=== PATIENT | female | born 1965 | race Two or more races ===

== ENCOUNTER → 2016-12-05 | Outpatient (CLI) | payer MEDICARE, OTHER ==
--- NOTE | 2016-12-05 14:39 | CT ---
EXAMINATION TYPE: CT chest wo con DATE OF EXAM: 12/05/2016 2:30 PM COMPARISON: CT chest June 18, 2016. HISTORY: Pulmonary nodule CT DLP: 744 mGycm. Automated Exposure Control for Dose Reduction was Utilized. TECHNIQUE: CT scan of the thorax is performed without IV contrast. FINDINGS: LUNGS: Scarlike opacity medial right lower lobe remains present and felt stable measuring 10 x 8 mm o n axial image 36. Linear scarring in the lingula near the diaphragm is stable. No new parenchymal nod ule or mass is present bilaterally. No pleural effusion or pneumothorax is seen. Tracheobronchial stephany e is patent. MEDIASTINUM: Lack of IV contrast is noted to limit evaluation for mediastinal and especially hilar a denopathy. There are no definitive greater than 1 cm hilar or mediastinal lymph nodes. No cardiomeg nely or pericardial effusion is seen. Three-vessel coronary artery calcification is noted. Some promin ence of fat in the interarterial septum is redemonstrated, cannot exclude lipomatous hypertrophy. OTHER: Liver is diffusely low dense consistent with fatty infiltration. IMPRESSION: Stable lesion medial right lung base favor postinflammatory in etiology. CT follow-up adv ised to document two-year stability.
== END | disposition home or self-care (01) ==
LOC: RADCTMAIN 12:51
PROVIDERS: ATTEND Internal Medicine Sleep Medicine
DX: J98.4 Other disorders of lung (principal)
CPT/HCPCS: 71250

== ENCOUNTER → 2020-08-23 | Outpatient (CLI) | payer MEDICARE, OTHER ==
[2020-08-23 15:38] VITALS: BP 133/85; PULSE 74; RESP 16; TEMP 97.8; BMI 41.2
--- NOTE | 2020-08-23 16:42 | P.HPBAR ---
Bariatric H&P - History & Physicial H&P Date: 08/23/20 History & Physicial: Visit/CC: Initial Visit Patient initial contact: Initial weight: 104.78 kg Initial weight in pounds: 231.00 Height: 5 ft 2.75 in Initial BMI: 41.2 Last weight: Current weight: 104.78 kg Current weight in pounds: 231.00 Current BMI: 41.2 [place] body weight (based on NIH guidelines): 51.596 kg Excess body weight loss: 0.0% The patient is a 55 year-old F who presents for Bariatric Assessment. HPI: She comes in for the first time for surgery. She has arthritis. She is told to lose weight for her knees and back. She reports lifetime weight gain. Highest weight is 275 pounds. She has not tried weight options recently. She chewed ice. Her sister had a band and has family history of obesity. Denies moderate GERD. No stomach or esophageal cancer. She had a colonoscopy 5 years ago with polyps. No abdominal pain. She still has her gallbladder. No surgeries to abdomen. She had a heart attack and had a stent. She does not see a heart doctor. She is open to options. She reports being a pickey eater PLAN: 1. She may be looking into the sleeve 2. EGD 3. Labs 4. Journal 5. EKG reviewed Past Medical History Past Medical History: Asthma, GERD/Reflux, Hearing Disorder / Deafness, Hyperlipidemia, Musculoskeletal Disorder, Respiratory Disorder, Rheumatoid Arthritis ([place]) History of Any Multi-Drug Resistant Organisms: None Reported Past Anesthesia/Blood Transfusion Reactions: No Reported Reaction, Postoperative Nausea & Vomiting (PONV) Smoking Status: Current some day smoker - Past Family History Father Family Medical History: Diabetes Mellitus, Myocardial Infarction ([place]) Mother Family Medical History: COPD Surgical - Exam Vital Signs Temp Pulse Resp BP 97.8 F 74 16 133/85 08/23/20 15:35 08/23/20 15:35 08/23/20 15:35 08/23/20 15:35 Bariatric Checklist Checklist: Plan: Checklist: EGD: 1. Hiatal hernia: 2. H. Pylori: HgbA1c: Vitamin D: Smoking: Current every day smoker Primary care physician referral: Dr. Stanford Psychiatry clearance: Cardiology clearance: Sleep study: Diet journal: VTE risk score: VTE risk level: Rehab needs at discharge:
== END | disposition home or self-care (01) ==
LOC: BARWHC3 15:04
PROVIDERS: ATTEND Surgery Plastic and Reconstructive Surgery
DX: R63.5 Abnormal weight gain (principal); M19.90 Unspecified osteoarthritis, unspecified site; K63.5 Polyp of colon; I51.89 Other ill-defined heart diseases; F17.200 Nicotine dependence, unspecified, uncomplicated; Z83.49 Family history of other endocrine, nutritional and metabolic diseases; Z95.818 Presence of other cardiac implants and grafts; Z68.41 Body mass index [BMI] 40.0-44.9, adult
CPT/HCPCS: 99201

== ENCOUNTER → 2021-05-09 | Outpatient (CLI) | payer MEDICARE, OTHER ==
[2021-05-09 13:41] VITALS: BP 142/84; PULSE 70; RESP 18; TEMP 98.7; BMI 45.1
--- NOTE | 2021-05-09 14:02 | P.HPBAR ---
Bariatric H&P - History & Physicial H&P Date: 05/09/21 History & Physicial: Visit/CC: initial visit Patient initial contact: Initial weight: 104.78 kg Initial weight in pounds: 231.00 Height: 5 ft 3.5 in Initial BMI: 40.2 Last weight: Current weight: 117.254 kg Current weight in pounds: 258.50 Current BMI: 45.1 [place] body weight (based on NIH guidelines): 53.297 kg Excess body weight loss: The patient is a 56 year-old F who presents for Bariatric Assessment. She is looking into weight loss surgery. She is thinking about the sleeve. She has tried losing weight with walking to lose weight. She does not like walking much as her back and hips hurt with walking too much. She has rheumatoid arthritis. She has arthritis of the back, hips, and knees. She has not altered her eating habits. Her father has obesity including two sisters. Her sister had the adjustable band and has not done well. Highest weight is 298 pounds. Lowest was 270 pounds to 230 pounds with walking. She is up to 260 pounds. No blood clots in the legs. She has easy bruising. She had heart attack 2 years ago. She has all her parts. She has not had surgery before. She denies food allergies. No chronic diarrhea. She has occassional heart burn. She has intermittent dysphagia to macaroni and bologne sandwich. She is unaware of cancers in her family of the gastrointestinal cancers. She reports she is a pickey eater. She uses a walker on occasion. She is a smoker. She is trying to lose weight down to 150 pounds. Quit smoking described Needs full protocol Cardiac risk assessment. Labs advised Chest xray She is on a CPAP machine Referral to simulation technician advised Recommend food diary journal for at least 1 week Past Medical History Past Medical History: Asthma, GERD/Reflux, Hearing Disorder / Deafness, Hyperlipidemia, Myocardial Infarction ([place]), Musculoskeletal Disorder, Respiratory Disorder, Rheumatoid Arthritis ([place]) Last Myocardial Infarction Date:: 07/23/2019 History of Any Multi-Drug Resistant Organisms: None Reported Past Surgical History: Heart Catheterization With Stent Additional Past Surgical History / Comment(s): stent 07/23/2019: Medtronic Resolute [place], 3.5 mm X 38 mm, Dr. Sogbetun. Past Anesthesia/Blood Transfusion Reactions: No Reported Reaction, Postoperative Nausea & Vomiting (PONV) Date of Last Stent Placement:: 07/23/2019 Past Psychological History: Depression Smoking Status: Current some day smoker Past Alcohol Use History: Rare Past Drug Use History: Marijuana Additional Drug Use History / Comment(s): 05/09/2021 - states smokes marijuana 1 to 2 times per week. - Past Family History Father Family Medical History: Diabetes Mellitus, Myocardial Infarction ([place]) Mother Family Medical History: COPD Surgical - Exam Vital Signs Temp Pulse Resp BP 98.7 F 70 18 142/84 05/09/21 13:32 05/09/21 13:32 05/09/21 13:32 05/09/21 13:32 Bariatric Checklist Checklist: Plan: Checklist: EGD: 1. Hiatal hernia: 2. H. Pylori: HgbA1c: Vitamin D: Smoking: Current every day smoker Primary care physician referral: Dr. Stanford Psychiatry clearance: Cardiology clearance: Sleep study: Diet journal: VTE risk score: VTE risk level: Rehab needs at discharge:
[2021-05-09 15:14] LABS: HCT 46.5 % (34.0-46.0); HGB 14.5 gm/dL (11.4-16.0); Hypochromasia Slight; MCH 28.9 pg (25.0-35.0); MCHC 31.2 g/dL (31.0-37.0); MCV 92.5 fL (80.0-100.0); Platelet Count 294 k/uL (150-450); RBC 5.03 m/uL (3.80-5.40); RDW 14.9 % (11.5-15.5); WBC 9.6 k/uL (3.8-10.6)
[2021-05-09 15:42] LABS: Partial Thromboplastin Time 22.2 sec (22.0-30.0); Prothrombin Time 10.3 sec (9.0-12.0)
[2021-05-10 09:53] LABS: % Iron Saturation 14.99 (12.00-45.00); African American GFR (CKD) 118.1 (60.0-200.0); Albumin 4.1 g/dL (3.80-4.90); Albumin/Globulin Ratio 1.37 (1.60-3.17); Anion Gap 11.7 mmol/L (4.00-12.00); BUN/Creat Ratio 26.67 Ratio (12.00-20.00); Calcium 9.4 mg/dL (8.7-10.3); Carbon Dioxide 24.3 mmol/L (21.6-31.8); Chol/HDL Ratio 4.07; LDL Cholesterol,Calculated 108.6 mg/dL (0.0-131.0); Non-African American GFR(CKD) 101.9 (60.0-200.0); Phosphorus 3.4 mg/dL (2.4-5.1); Potassium 4.7 mmol/L (3.5-5.5); Total Bilirubin 0.8 mg/dL (0.2-1.2); Total Protein 7.1 g/dL (6.2-8.2); VLDL Calculation 20.4 mg/dL (5.00-40.00)
[2021-05-10 13:17] LABS: Zinc, Serum 70 ug/dL (60-130)
[2021-05-11 06:23] LABS: Vitamin A 22 ug/dL (38-106)
[2021-05-11 12:25] LABS: Vit B1(Thiamine) 83 ug/L (38-122)
[2021-05-11 13:02] LABS: Folate, Serum 16.1 ng/mL
[2021-05-12 11:14] LABS: Anabasine Urine <2.0 ng/mL (<2.0)
[2021-05-14 18:23] LABS: Selenium 102 mcg/L (63-160)
== END ==
LOC: BARWHC3 12:31
PROVIDERS: ATTEND Surgery Plastic and Reconstructive Surgery
DX: E66.01 Morbid (severe) obesity due to excess calories (principal); E89.1 Postprocedural hypoinsulinemia; D50.8 Other iron deficiency anemias; E44.0 Moderate protein-calorie malnutrition; E55.9 Vitamin D deficiency, unspecified; K74.1 Hepatic sclerosis; N19 Unspecified kidney failure; K50.90 Crohn's disease, unspecified, without complications; J45.909 Unspecified asthma, uncomplicated; K21.9 Gastro-esophageal reflux disease without esophagitis; E78.5 Hyperlipidemia, unspecified; I25.2 Old myocardial infarction; M06.9 Rheumatoid arthritis, unspecified; F32.9 Major depressive disorder, single episode, unspecified; F17.200 Nicotine dependence, unspecified, uncomplicated; Z68.42 Body mass index [BMI] 45.0-49.9, adult; Z95.5 Presence of coronary angioplasty implant and graft
CPT/HCPCS: 84255; 84134; 84425; 80061; 80053; 82607; 82728; 82525; 82746; 83540; 83550; 83735; 84100; 84443; 84590; 84630; 85027; 85610; 85730; 82306; 83970; 83036; 80307; 93005; 36415; G0480; G0482; G0463; 80323; 99203

== ENCOUNTER 2021-07-16 07:56 | Day surgery (SDC) | payer MEDICARE, OTHER ==
[2021-07-11 10:50] VITALS: BMI 46.0
--- NOTE | 2021-07-16 05:20 | P.GSHP ---
History of Present Illness H&P Date: 07/16/21 CHIEF COMPLAINT: GERD HISTORY OF PRESENT ILLNESS: The patient is a 56-year-old female who presents reports gastroesophageal reflux disease. Upper endoscopy was offered for further evaluation and management. PAST MEDICAL HISTORY: Please see list. PAST SURGICAL HISTORY: Please see list. MEDICATIONS: Please see list. ALLERGIES: Please see list. SOCIAL HISTORY: No illicit drug use FAMILY HISTORY: No reports of Crohn disease or ulcerative colitis. REVIEW OF ORGAN SYSTEMS: CONSTITUTIONAL: No reports of fevers or chills. GI: Denies any blood in stools or constipation. PHYSICAL EXAM: VITAL SIGNS: Stable GENERAL: Well-developed and pleasant in no acute distress. HEENT: No scleral icterus. Extraocular movements grossly intact. Moist buccal mucosa. NECK: Supple without lymphadenopathy. CHEST: Unlabored respirations. Equal bilateral excursions. CARDIOVASCULAR: Regular rate and rhythm. Distal 2+ pulses. ABDOMEN: Soft, nondistended. MUSCULOSKELETAL: No clubbing, cyanosis, or edema. ASSESSMENT: 1. Gastroesophageal reflux disease PLAN: 1. Recommend proceeding with an upper endoscopy Past Medical History Past Medical History: Asthma, GERD/Reflux, Hearing Disorder / Deafness, Hyperlipidemia, Myocardial Infarction ([place]), Musculoskeletal Disorder, Respiratory Disorder, Rheumatoid Arthritis ([place]) Last Myocardial Infarction Date:: 07/23/2019 History of Any Multi-Drug Resistant Organisms: None Reported Past Surgical History: Heart Catheterization With Stent Additional Past Surgical History / Comment(s): stent 07/23/2019: Medtronic Resolute [place], 3.5 mm X 38 mm, Dr. Castaneda. COLONOSCOPY, EGD Past Anesthesia/Blood Transfusion Reactions: Postoperative Nausea & Vomiting (PONV) Date of Last Stent Placement:: 07/23/2019 Smoking Status: Current every day smoker - Past Family History Father Family Medical History: Diabetes Mellitus, Myocardial Infarction ([place]) Mother Family Medical History: COPD Medications and Allergies Home Medications Medication Instructions Recorded Confirmed Type Ibuprofen [Motrin] 800 mg PO BID 06/30/14 07/11/21 History oxyCODONE-APAP 10-325MG [Percocet 10 mg PO TID 06/30/14 07/11/21 History 10-325 mg] Albuterol Sulfate [Proair Hfa] 1 puff INHALATION DIRECTED PRN 07/01/14 07/11/21 History Fluticasone/Salmeterol [Advair 1 puff INHALATION DIRECTED PRN 07/01/14 History 250-50 Diskus] Methylphenidate HCl [Ritalin] 20 mg PO BID 07/01/14 07/11/21 History Ascorbic Acid [Vitamin C] 500 mg PO DAILY 05/09/21 07/11/21 History Cholecalciferol [Vitamin D3 (25 25 mcg PO DAILY 05/09/21 07/11/21 History Mcg = 1000 Iu)] Folic Acid 1 mg PO DAILY 05/09/21 07/11/21 History Gabapentin [Neurontin] 300 mg PO BID 05/09/21 07/11/21 History Hydroxychloroquine Sulfate 200 mg PO BID 06/05/21 07/11/21 History [Plaquenil] metHOTREXate sodium [Methotrexate] 12.5 mg PO POLO 06/05/21 07/11/21 History Vitamin A Acetate [Vitamin A] 3,000 mcg PO DAILY 07/11/21 07/11/21 History Allergies Allergy/AdvReac Type Severity Reaction Status Date / Time No Known Allergies Allergy Verified 07/12/21 14:23
[~2021-07-16 07:56] MED LIST: LACTATED RINGERS 1,000 ML IV SCH; LIDOCAINE 1% (10MG/ML) FOR IV START INTRADERMA PRN
[2021-07-16 08:22] VITALS: TEMP 96.6
[2021-07-16] MEDS ORDERED: LIDOCAINE 1% (10MG/ML) FOR IV START INTRADERMA ONE (08:33)
[2021-07-16] MEDS ORDERED: PROPOFOL 10 MG/ML 20 ML VIAL IV ONE (08:34)
[2021-07-16] MEDS ORDERED: KETAMINE 10 MG/ML 20 ML VIAL ONE (08:34)
[2021-07-16] MEDS ORDERED: LIDOCAINE 1% INJ 10MG/ML (20 ML MDV) ONE (08:34)
[2021-07-16 09:05] VITALS: RESP 16
[2021-07-16 09:19] VITALS: BP 148/74; PULSE 73
--- NOTE | 2021-07-16 09:34 | P.PCN ---
Date of Procedure: 07/16/21 Description of Procedure: PREOPERATIVE DIAGNOSIS: Gastroesophageal reflux disease. Morbid obesity. POSTOPERATIVE DIAGNOSIS: Morbid obesity. Gastritis. Gastroesophageal reflux disease. OPERATION: Esophagogastroduodenoscopy with biopsies along antrum. SURGEON: Herminia Fernandez MD ANESTHESIA: MAC. INDICATIONS: The patient is a 56-year-old female who presents with a history of reflux disease. Benefits and risks of the procedure were described. Informed consent was obtained. DESCRIPTION: The patient was brought into the endoscopy suite and laid in the left lateral decubitus position. An Olympus gastroscope was passed along the posterior oropharynx down to the distal esophagus where the squamocolumnar junction was encountered at 37 cm from the incisors. The stomach was entered and no bile reflux was found. Additional findings are listed below. Biopsies with cold forceps were obtained of the antrum. The first through third portion of the duodenum was examined and unremarkable. Retroflexion of the scope confirmed Hill grade 2 lower esophageal valve. The squamocolumnar junction demonstrated [place] grade A erosive esophagitis. The stomach was desufflated. The patient tolerated the procedure well. FINDINGS: Squamocolumnar junction 37 cm from the incisors. Diaphragmatic hiatus at 37 cm. Hill grade 2 lower esophageal valve. [place] grade A erosive esophagitis. No active duodenitis. Chronic gastritis RECOMMENDATIONS: Upper endoscopy as needed. Plan - Discharge Summary Discharge Rx Participant: No New Discharge Prescriptions: Continue Ibuprofen [Motrin] 800 mg PO BID oxyCODONE-APAP 10-325MG [Percocet 10-325 mg] 10 mg PO TID Methylphenidate HCl [Ritalin] 20 mg PO BID Fluticasone/Salmeterol [Advair 250-50 Diskus] 1 puff INHALATION DIRECTED PRN PRN Reason: Dyspnea Albuterol Sulfate [Proair Hfa] 1 puff INHALATION DIRECTED PRN PRN Reason: Dyspnea Ascorbic Acid [Vitamin C] 500 mg PO DAILY Gabapentin [Neurontin] 300 mg PO BID Folic Acid 1 mg PO DAILY metHOTREXate sodium [Methotrexate] 12.5 mg PO POLO Cholecalciferol [Vitamin D3 (25 Mcg = 1000 Iu)] 25 mcg PO DAILY Hydroxychloroquine Sulfate [Plaquenil] 200 mg PO BID Vitamin A Acetate [Vitamin A] 3,000 mcg PO DAILY Discharge Medication List Ibuprofen [Motrin] 800 mg PO BID 06/30/14 [History] oxyCODONE-APAP 10-325MG [Percocet 10-325 mg] 10 mg PO TID 06/30/14 [History] Albuterol Sulfate [Proair Hfa] 1 puff INHALATION DIRECTED PRN 07/01/14 [History] Fluticasone/Salmeterol [Advair 250-50 Diskus] 1 puff INHALATION DIRECTED PRN 07/01/14 [History] Methylphenidate HCl [Ritalin] 20 mg PO BID 07/01/14 [History] Ascorbic Acid [Vitamin C] 500 mg PO DAILY 05/09/21 [History] Cholecalciferol [Vitamin D3 (25 Mcg = 1000 Iu)] 25 mcg PO DAILY 05/09/21 [History] Folic Acid 1 mg PO DAILY 05/09/21 [History] Gabapentin [Neurontin] 300 mg PO BID 05/09/21 [History] Hydroxychloroquine Sulfate [Plaquenil] 200 mg PO BID 06/05/21 [History] metHOTREXate sodium [Methotrexate] 12.5 mg PO POLO 06/05/21 [History] Vitamin A Acetate [Vitamin A] 3,000 mcg PO DAILY 07/11/21 [History] Follow up [facility]ment(s[facility] [place] [facility] - 07/[facility]/21 Patient Instructions/Handouts: Gastritis (DC), Diet for Stomach Ulcers and Gastritis (GEN) Discharge Disposition: HOME SELF-CARE
== END 2021-07-16 09:41 | disposition home or self-care (01) ==
LOC: ORWHC2ENDO 07:56
PROVIDERS: ATTEND Surgery Plastic and Reconstructive Surgery
DX: K29.50 Unspecified chronic gastritis without bleeding (principal); K29.70 Gastritis, unspecified, without bleeding; K21.9 Gastro-esophageal reflux disease without esophagitis; E66.01 Morbid (severe) obesity due to excess calories; I25.10 Atherosclerotic heart disease of native coronary artery without angina pectoris; J44.9 Chronic obstructive pulmonary disease, unspecified; Z79.899 Other long term (current) drug therapy; Z95.818 Presence of other cardiac implants and grafts
CPT/HCPCS: 43239; J2001; J2704; 88305; 88342

== ENCOUNTER → 2021-09-24 | Outpatient (CLI) | payer MEDICARE, OTHER ==
[2021-09-24 12:13] VITALS: BMI 47.2
== END ==
LOC: BARWHC3 08:38
PROVIDERS: ATTEND Surgery Plastic and Reconstructive Surgery
DX: E66.01 Morbid (severe) obesity due to excess calories (principal); Z71.3 Dietary counseling and surveillance; F17.200 Nicotine dependence, unspecified, uncomplicated; Z68.42 Body mass index [BMI] 45.0-49.9, adult
CPT/HCPCS: 97804

== ENCOUNTER → 2022-04-01 | Outpatient (CLI) | payer MEDICARE, OTHER ==
[2022-04-01 13:56] VITALS: BMI 49.1
== END ==
LOC: BARWHC3 08:39
PROVIDERS: ATTEND Surgery Plastic and Reconstructive Surgery
DX: E66.01 Morbid (severe) obesity due to excess calories (principal); Z71.3 Dietary counseling and surveillance; F17.200 Nicotine dependence, unspecified, uncomplicated; Z68.42 Body mass index [BMI] 45.0-49.9, adult
CPT/HCPCS: 97804